=== PATIENT | male | born 1985 | race Caucasian/White ===

== ENCOUNTER 2016-05-27 22:45 | Emergency (ER) | payer MEDICAID ==
[~2016-05-27 22:45] MED LIST: BACTRIM DS TABL1 TA1 PO; BACTRIM DS TABL1 TA2 PO; BACTRIM PO; CLEOCIN PO; CLINDAMYCIN HC300 MG PO; DICLOFENAC PO; HEROIN; IBUPROFEN800 MG PO; KEFLEX PO; METH; NO MEDICATIONS; ROBAXIN500 MG PO; VOLTAREN75 MG PO
== END 2016-05-27 23:09 | disposition home or self-care (01) ==
LOC: SED 22:45
DX: L02.412 Cutaneous abscess of left axilla (principal); F17.210 Nicotine dependence, cigarettes, uncomplicated
CPT/HCPCS: 99282